=== PATIENT | female | born 1940 | race Caucasian/White ===

== ENCOUNTER 2023-03-28 09:16 | Inpatient (IN) | payer OTHER, MEDICAID ==
[~2023-03-28] VITALS: Ht 157.5 cm; Wt 43.5 kg
[2023-03-28] VITALS (7 sets, daily range): BP systolic 150; BP diastolic 80; PULSE 80; RESP 16; TEMP 97.7; O2SAT 98–100
[2023-03-28] MEDS ORDERED: ACETAMINOPHEN EXTRA STRENGTH 500 MG TAB PO ONE (13:20)
[2023-03-28] MEDS ORDERED: MAGNESIUM OXIDE 400 MG TAB PO PRN (18:10)
[2023-03-28] MEDS ORDERED: LORazepam 1 MG TAB PO PRN (18:10)
[2023-03-28] MEDS ORDERED: ACETAMINOPHEN 325 MG TAB PO PRN (18:10)
[2023-03-28] MEDS ORDERED: MORPHINE SULFATE 2 MG/ML SYR IVP PRN (18:10)
[2023-03-28] MEDS ORDERED: POTASSIUM CHLORIDE 10 MEQ TABER PO PRN (18:10)
[2023-03-28] MEDS ORDERED: HYDROcodone/APAP 5/325 MG 1 TAB TAB PO PRN (18:10)
[2023-03-28] MEDS ORDERED: hydrALAZINE 20 MG/ML VIAL IM PRN (18:15)
[2023-03-28] MEDS ORDERED: NUTR1CAP70 PO (19:36)
[2023-03-29 07:41] LABS: BASOPHILS % (AUTO) 0.4 % (0.0-2.0); EOSINOPHILS % (AUTO) 0.1 % (0.0-4.0); HEMATOCRIT 34.6 % (36-48); HEMOGLOBIN 11.3 g/dL (12.0-16.0); LYMPHOCYTES # (AUTO) 0.6 K/uL (2.5-16.5); LYMPHOCYTES % (AUTO) 6.5 % (20.5-51.1); MEAN CORPUSCULAR HEMOGLOBIN 26 pg (27-31); MEAN CORPUSCULAR HGB CONC 33 g/dL (33-37); MONOCYTES # (AUTO) 0.4 K/uL (0.8-1.0); MONOCYTES % (AUTO) 4.1 % (1.7-9.3); NEUTROPHILS # (AUTO) 7.9 K/uL (1.8-7.7); NEUTROPHILS % (AUTO) 88.9 % (42.2-75.2); PLATELET COUNT (AUTO) 283 K/uL (140-450); RED BLOOD CELL COUNT(AUTO) 4.32 MIL/uL (4.20-5.40); RED CELL DISTRIBUTION WIDTH 17.9 % (11.6-13.7); WHITE BLOOD COUNT (AUTO) 8.9 K/uL (4.8-10.8)
[2023-03-29 09:12] VITALS: PULSE 75; RESP 16; O2SAT 99
[2023-03-29 09:18] LABS: ANION GAP 14.7 (8-16); CALCIUM 8.6 mg/dL (8.5-10.1); CARBON DIOXIDE 25.8 mmol/L (21-32); CHLORIDE 99 mmol/L (98-107); CREATININE 0.6 mg/dL (0.6-1.3); POTASSIUM 3.5 mmol/L (3.5-5.1); SODIUM SERUM 136 mmol/L (136-145); UREA NITROGEN, BLOOD 21 mg/dL (7-18)
[2023-03-29 09:26] VITALS: BP 124/45; PULSE 75; RESP 18; TEMP 97.5; O2SAT 98
[2023-03-29] MEDS ORDERED: hydrALAZINE 20 MG/ML VIAL IM PRN (09:44)
[2023-03-29 09:47] LABS: GLUCOSE 49 mg/dL (74-106)
[2023-03-29] MEDS ORDERED: AMYL-13 PO (14:10)
[2023-03-29 16:39] VITALS: BP 139/66; PULSE 72; RESP 18; TEMP 97.8; O2SAT 98
[2023-03-29 20:00] VITALS: BP 146/45; PULSE 87; RESP 16; TEMP 97.7; O2SAT 97
[2023-03-30 07:00] LABS: ANION GAP 6.7 (8-16); CALCIUM 8.3 mg/dL (8.5-10.1); CHLORIDE 100 mmol/L (98-107); CREATININE 0.6 mg/dL (0.6-1.3); GLUCOSE 86 mg/dL (74-106); POTASSIUM 3.7 mmol/L (3.5-5.1); SODIUM SERUM 136 mmol/L (136-145); UREA NITROGEN, BLOOD 16 mg/dL (7-18)
[2023-03-30 07:01] LABS: BASOPHILS % (AUTO) 0.4 % (0.0-2.0); EOSINOPHILS # (AUTO) 0.1 K/uL (0-0.4); HEMATOCRIT 34.8 % (36-48); HEMOGLOBIN 11.3 g/dL (12.0-16.0); LYMPHOCYTES # (AUTO) 0.8 K/uL (2.5-16.5); LYMPHOCYTES % (AUTO) 14.2 % (20.5-51.1); MEAN CORPUSCULAR HEMOGLOBIN 26 pg (27-31); MEAN CORPUSCULAR HGB CONC 33 g/dL (33-37); MEAN CORPUSCULAR VOLUME 79.5 fL (80-94); MONOCYTES # (AUTO) 0.5 K/uL (0.8-1.0); MONOCYTES % (AUTO) 8.3 % (1.7-9.3); NEUTROPHILS # (AUTO) 4.4 K/uL (1.8-7.7); NEUTROPHILS % (AUTO) 76.1 % (42.2-75.2); PLATELET COUNT (AUTO) 331 K/uL (140-450); RED BLOOD CELL COUNT(AUTO) 4.37 MIL/uL (4.20-5.40); RED CELL DISTRIBUTION WIDTH 17.9 % (11.6-13.7); WHITE BLOOD COUNT (AUTO) 5.7 K/uL (4.8-10.8)
[2023-03-30 08:00] VITALS: BP 148/61; PULSE 69; RESP 17; TEMP 98.2; O2SAT 99
[2023-03-30 16:00] VITALS: BP 140/52; PULSE 74; RESP 17; TEMP 98.2; O2SAT 98
[2023-03-30] MEDS ORDERED: AMYLASE PO SCH (17:00)
[2023-03-30] MEDS ORDERED: LIPASE PO SCH (17:00)
[2023-03-30] MEDS ORDERED: PROTEASE PO SCH (17:00)
[2023-03-30] MEDS ORDERED: AMYLASE/LIPASE/PROTEASE 1 CAPDR PO SCH (17:00)
[2023-03-30] MEDS: CREON PO SCH (17:33)
[2023-03-30 20:00] VITALS: BP 142/45; PULSE 70; RESP 18; TEMP 96.7; O2SAT 96
[2023-03-31 04:00] VITALS: BP 148/55; PULSE 71; RESP 18; TEMP 96.7; O2SAT 99
[2023-03-31 07:05] LABS: BASOPHILS % (AUTO) 0.5 % (0.0-2.0); EOSINOPHILS # (AUTO) 0.1 K/uL (0-0.4); EOSINOPHILS % (AUTO) 1.2 % (0.0-4.0); HEMATOCRIT 36.2 % (36-48); HEMOGLOBIN 11.8 g/dL (12.0-16.0); LYMPHOCYTES % (AUTO) 14.1 % (20.5-51.1); MEAN CORPUSCULAR HEMOGLOBIN 26 pg (27-31); MEAN CORPUSCULAR HGB CONC 33 g/dL (33-37); MEAN CORPUSCULAR VOLUME 79.9 fL (80-94); MONOCYTES # (AUTO) 0.4 K/uL (0.8-1.0); MONOCYTES % (AUTO) 5.8 % (1.7-9.3); NEUTROPHILS # (AUTO) 5.6 K/uL (1.8-7.7); NEUTROPHILS % (AUTO) 78.4 % (42.2-75.2); PLATELET COUNT (AUTO) 352 K/uL (140-450); RED BLOOD CELL COUNT(AUTO) 4.53 MIL/uL (4.20-5.40); RED CELL DISTRIBUTION WIDTH 18.2 % (11.6-13.7); WHITE BLOOD COUNT (AUTO) 7.2 K/uL (4.8-10.8)
[2023-03-31 08:00] VITALS: PULSE 56; RESP 18; O2SAT 96
[2023-03-31] MEDS: CREON PO SCH ×3 (08:00→17:00)
[2023-03-31 09:14] LABS: ANION GAP 13.2 (8-16); CALCIUM 8.9 mg/dL (8.5-10.1); CARBON DIOXIDE 29.7 mmol/L (21-32); CHLORIDE 99 mmol/L (98-107); CREATININE 0.6 mg/dL (0.6-1.3); GLUCOSE 85 mg/dL (74-106); POTASSIUM 3.9 mmol/L (3.5-5.1); SODIUM SERUM 138 mmol/L (136-145); UREA NITROGEN, BLOOD 14 mg/dL (7-18)
[2023-03-31] MEDS ORDERED: CHLORHEXADINE GLUC 2% CLOTH TP SCH (13:00)
[2023-03-31] MEDS ORDERED: MUPIROCIN CA NASAL 2% 1GM TUBE NS SCH (13:00)
[2023-03-31] MEDS ORDERED: ACET-9525 PO (13:37)
[2023-03-31 16:00] VITALS: BP 138/53; PULSE 66; RESP 18; TEMP 98.1; O2SAT 98
== END 2023-03-31 18:35 | DRG 563 ==
LOC: MED 09:16 → MMU 18:11 → MTU 03-29 05:04
PROVIDERS: ADMIT Student in an Organized Health Care Education/Training Program; ATTEND Student in an Organized Health Care Education/Training Program
DX: S52.92XA Unspecified fracture of left forearm, initial encounter for closed fracture (principal); Z68.1 Body mass index [BMI] 19.9 or less, adult; R62.7 Adult failure to thrive; G89.29 Other chronic pain; I10 Essential (primary) hypertension; E78.5 Hyperlipidemia, unspecified; M81.0 Age-related osteoporosis without current pathological fracture; W18.39XA Other fall on same level, initial encounter; Y93.89 Activity, other specified; Y92.89 Other specified places as the place of occurrence of the external cause; Y99.8 Other external cause status
CPT/HCPCS: 36415; 70450; 72125; 72170; 73030; 73060; 73080; 73110; 80048; 82948; 85025; 85730; 87081; 97112; 97116; 97530; 99285; J1644